=== PATIENT | female | born 1950 | race Caucasian/White ===

== ENCOUNTER 2017-12-27 23:27 | Emergency (ER) | payer MEDICARE ==
[~2017-12-27] VITALS: Ht 170.2 cm; Wt 80.0 kg
[2017-12-27 23:40] VITALS: BP 170/99; PULSE 82; RESP 18; TEMP 97.6; O2SAT 95
--- NOTE | 2017-12-27 23:58 | PD ---
HPI Chief Complaint: Injury Time Seen by Provider: 23:47 Travel History International Travel<30 days: No Contact w/Intl Traveler<30days: No Traveled to known affect area: No History of Present Illness HPI Patient is a 67-year-old female presented to the emergency department for evaluation of bilateral foot pain. Patient reports that she tripped over the threshold of her doorway, coming down on her knees. 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 She reports pain in her left first toe and her right first and second toe. She reports the pain is a 7 out of 10, she describes as throbbing, symptom severity is mild to moderate. Patient denies any head injury or loss of consciousness. She denies any knee pain. She denies any dizziness, chest pain or shortness of breath prior to the fall. She has been placing ice on her foot with no significant improvement. Symptom onset was sudden. PFSH Past Medical History Diabetes: Yes Patient Takes Glucophage: No Diminished Hearing: No Myocardial Infarction: Yes ("they told me I did but I did know") Tetanus Vaccination: Unknown Influenza Vaccination: No ?: Not Past Surgical History Abdominal Surgery: Yes (lap band) Hysterectomy: Yes Other Surgery: Yes (rigth hemicolectomy, ) Social History Alcohol Use: No Tobacco Use: No Substance Use: No Allergies-Medications (Allergen,Severity, Reaction): Coded Allergies: Penicillins (Verified Allergy, Severe, 12/27/17) hives penicillin G (Verified Allergy, Severe, Anaphylaxis, 12/27/17) Review of Systems Except as stated in HPI: all other systems reviewed are Neg Musculoskeletal: Positive: Myalgias, Arthralgias, Limited ROM Skin: Positive Change in Pigmentation Physical Exam Narrative GENERAL: Well-developed, well-nourished, alert elderly female. Presenting in no acute distress. SKIN: Warm and dry. HEAD: Atraumatic. Normocephalic. EYES: Pupils equal and round. No scleral icterus. No injection or drainage. ENT: No nasal bleeding or discharge. Mucous membranes pink and moist. NECK: Trachea midline. No JVD. CARDIOVASCULAR: Regular rate and rhythm. RESPIRATORY: No accessory muscle use. Clear to auscultation. Breath sounds equal bilaterally. GASTROINTESTINAL: Abdomen soft, non-tender, nondistended. Hepatic and splenic margins not palpable. MUSCULOSKELETAL: Extremities without clubbing, cyanosis, or edema. No obvious deformities. Mild ecchymosis noted to the left first great toe and right first toe. 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 No obvious deformities in the bilateral feet or right ankle. 2+ dorsalis pedal pulses bilaterally, brisk less than 3 second capillary refill. NEUROLOGICAL: Awake and alert. No obvious cranial nerve deficits. Motor grossly within normal limits. Five out of 5 muscle strength in the arms and legs. Normal speech. PSYCHIATRIC: Appropriate mood and affect; insight and judgment normal. Data Data Last Documented VS Vital Signs Date Time Temp Pulse Resp B/P (MAP) Pulse Ox O2 Delivery O2 Flow Rate FiO2 12/27/17 23:40 97.6 82 18 170/99 (122) 95 Orders Orders Foot, Complete ([id number]) (12/28/17 ) Foot, Complete ([id number]) (12/28/17 ) [facility] Medical Decision Making Medical Screen Exam Complete: Yes Emergency Medical Condition: Yes Interpretation(s) Vital Signs Date Time Temp Pulse Resp B/P (MAP) Pulse Ox O2 Delivery O2 Flow Rate FiO2 12/27/17 23:40 97.6 82 18 170/99 (122) 95 Differential Diagnosis Fracture versus sprain versus strain versus contusion versus other Narrative Course Patient is a 67-year-old female that presented to the emergency department for evaluation of bilateral toe pain after sustaining a mechanical fall earlier this afternoon. Patient is neurovascularly intact, there are no obvious deformities noted. Imaging ordered and pending. Patient declined pain medication or ice. Patient's vital signs are stable. X-rays of the left and right foot are negative for acute fracture or dislocation. Patient will be tested on crutches for stability. She is encouraged to increase weightbearing as tolerated, alternate heat and ice the affected area, continue gentle range of motion exercises. She was encouraged to return to emergency department new worsening symptoms, follow-up with her primary doctor. Diagnosis Primary Impression: Contusion Qualified Codes: S90.119A - Contusion of unspecified great toe without damage to nail, initial encounter Referrals: Primary Care Physician Patient Instructions: Foot Contusion (ED), General Instructions Additional Instructions: Follow-up with your primary doctor Increase weightbearing as tolerated Do not drive or operate machinery while taking pain medication Return to emergency department for any new or worsening symptoms Rest, elevate, ice extremity. Med/Other Pt SpecificInfo: Prescription(s) given Scripts Tramadol (Tramadol) 50 Mg Tab 50 MG PO Q8H Y for PAIN, #10 TAB 0 Refills Prov: Kaitlin Albright 12/28/17 Disposition: 01 DISCHARGE HOME Condition: Stable Kaitlin Albright Dec 27, 2017 23:58
--- NOTE | 2017-12-28 00:53 | RADRPT ---
EXAM DATE/TIME: 12/28/2017 00:27 [facility] COMPARISON: No previous studies available for comparison. INDICATIONS : Right foot pain post fall. MEDICAL HISTORY : None. SURGICAL HISTORY : ORIF Lt ankle with hardware, hardware removal, and fusion. ENCOUNTER: Initial ACUITY: 1 day PAIN SCORE: 8/10 LOCATION: Right foot FINDINGS: Three view examination of the right foot demonstrates no soft tissue swelling, dislocation, or fractu re. The tarsal bones appear intact. The interphalangeal and metatarsophalangeal joints are intact. The calcaneus is intact. Bony mineralization is normal. CONCLUSION: 1. No acute fracture or dislocation. Kevin Rich MD on December 28, 2017 at 0:52 Board Certified Radiologist. This report was verified electronically.
--- NOTE | 2017-12-28 00:57 | RADRPT ---
EXAM DATE/TIME: 12/28/2017 00:29 [facility] COMPARISON: No previous studies available for comparison. INDICATIONS : Left foot pain post fall. MEDICAL HISTORY : None. SURGICAL HISTORY : ORIF Lt ankle with hardware, hardware removal, and fusion. ENCOUNTER: Initial ACUITY: 1 day PAIN SCORE: 8/10 LOCATION: Left foot FINDINGS: Three view examination of the left foot demonstrates no soft tissue swelling, dislocation, or acute f racture. Bony remodeling in the distal tibia consistent with prior fracture. Osseous structures are d iffusely osteopenic. The tarsal bones appear intact. The interphalangeal and metatarsophalangeal j oints are intact. The calcaneus is intact. Bony mineralization is normal. CONCLUSION: 1. Old healed distal tibial fracture. 2. Diffuse osteopenia. 3. No acute fracture or dislocation. Kevin Rich MD on December 28, 2017 at 0:55 Board Certified Radiologist. This report was verified electronically.
[2017-12-28] MEDS ORDERED: TRAM50TA PO (01:12)
== END 2017-12-28 01:21 | disposition home or self-care (01) ==
LOC: NEPD 23:27
DX: S90.119A Contusion of unspecified great toe without damage to nail, initial encounter (principal); E11.9 Type 2 diabetes mellitus without complications; I25.2 Old myocardial infarction; W01.0XXA Fall on same level from slipping, tripping and stumbling without subsequent striking against object, initial encounter; Z88.0 Allergy status to penicillin
CPT/HCPCS: 73630; 99283; E0113